=== PATIENT | male | born 1995 | race Caucasian/White ===

== ENCOUNTER 2019-09-13 00:03 | Emergency (ER) | payer OTHER ==
[~2019-09-13] VITALS: Ht 180.3 cm; Wt 90.3 kg
[~2019-09-13 00:03] MED LIST: ACCUNEB SO1.25 MG/1; ACETAMINOPHEN-1 EAC1 PO; ACTICIN 5% CREA60 G1 TOP; APAP/CODEI12 MG/5 M1 PO; BENADRYL25 MG PO; BENTYL 10 MG CA10 MG PO; BUPROPION; FLOVENT HFA 1110 MCG; IBUPROFEN 600600 M1 PO; IBUPROFEN 800800 M1 PO; IBUPROFEN 800800 MG PO; INVEGA6 MG PO; NEXIUM; NEXIUM40 MG; NOHOMEMEDICATIONS; PREDNISONE 10 M10 M1 PO; PREDNISONE50 MG PO; PRILOSEC 10MG C10 M1 PO; TESSALON200 MG PO; TRAMADOL 50 MG50 MG PO; VENTOLIN17 GM INH; WELLBUTRIN 100100 M1; ZPAK PO
[2019-09-13 00:46] VITALS: BP 126/81
--- NOTE | 2019-09-13 10:58 | EKG ---
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
== END 2019-09-13 00:46 | disposition home or self-care (01) ==
LOC: M.ERS 00:03
DX: R07.89 Other chest pain (principal); K58.9 Irritable bowel syndrome, unspecified; J45.909 Unspecified asthma, uncomplicated; F17.210 Nicotine dependence, cigarettes, uncomplicated; Z90.49 Acquired absence of other specified parts of digestive tract; Z88.0 Allergy status to penicillin; Z88.2 Allergy status to sulfonamides

== ENCOUNTER 2019-09-25 08:08 | Emergency (ER) | payer OTHER ==
[~2019-09-25] VITALS: Ht 180.3 cm; Wt 90.3 kg
[2019-09-25 08:47] LABS: HEMATOCRIT 47.1 % (42.0-52.0); HEMOGLOBIN 16.3 gm/dL (14.0-18.0); MCH 30.9 pg (26.0-34.0); MCHC 34.6 g/dL (28.0-37.0); MCV 89.4 fL (80.0-100.0); MPV 8.4 fl. (7.2-11.1); RBC 5.27 mil/uL (4.50-6.00); RDW-CV 14.3 % (10.5-14.5); WBC 7.9 thou/uL (4.0-11.0)
[2019-09-25 08:56] LABS: CALCIUM 8.3 mg/dL (8.5-10.1); CREATININE 0.8 mg/dL (0.6-1.3)
[2019-09-25 09:00] LABS: ALBUMIN 3.6 g/dL (3.4-5.0); TOTAL BILIRUBIN 0.2 mg/dL (<0.1-1.0); TOTAL PROTEIN 7.1 g/dL (6.4-8.2)
[2019-09-25] MEDS ORDERED: FLEXERIL PO (09:23)
[2019-09-25] MEDS ORDERED: IBUPROFEN 800800 M1 PO (09:23)
[2019-09-25 09:51] VITALS: BP 134/86
== END 2019-09-25 09:52 | disposition home or self-care (01) ==
LOC: M.ERS 08:08
PROVIDERS: Emergency Medicine Emergency Medical Services
DX: R07.81 Pleurodynia (principal); E86.0 Dehydration; J45.909 Unspecified asthma, uncomplicated; F17.210 Nicotine dependence, cigarettes, uncomplicated; Z88.0 Allergy status to penicillin; Z88.2 Allergy status to sulfonamides; Z90.49 Acquired absence of other specified parts of digestive tract

== ENCOUNTER 2019-11-06 17:42 | Emergency (ER) | payer OTHER ==
[~2019-11-06] VITALS: Ht 180.3 cm; Wt 90.3 kg
[~2019-11-06 17:42] MED LIST changes: +FLEXERIL PO
[2019-11-06] MEDS ORDERED: ZANAFLEX4 MG PO (18:59)
[2019-11-06] MEDS ORDERED: AZITHROMYCIN500 MG PO (18:59)
[2019-11-06 19:26] VITALS: BP 140/79
== END 2019-11-06 19:26 | disposition home or self-care (01) ==
LOC: M.ERS 17:42
DX: S39.012A Strain of muscle, fascia and tendon of lower back, initial encounter (principal); J02.0 Streptococcal pharyngitis; J45.909 Unspecified asthma, uncomplicated; F17.210 Nicotine dependence, cigarettes, uncomplicated; Z90.49 Acquired absence of other specified parts of digestive tract; Z88.0 Allergy status to penicillin; Z88.2 Allergy status to sulfonamides; V89.2XXA Person injured in unspecified motor-vehicle accident, traffic, initial encounter; Y93.89 Activity, other specified; Y92.89 Other specified places as the place of occurrence of the external cause; Y99.8 Other external cause status

== ENCOUNTER 2019-12-02 04:31 | Emergency (ER) | payer OTHER ==
[~2019-12-02] VITALS: Ht 180.3 cm; Wt 90.7 kg
[~2019-12-02 04:31] MED LIST changes: +AZITHROMYCIN500 MG PO; +ZANAFLEX4 MG PO
[2019-12-02] MEDS ORDERED: BENTYL 10 MG CA10 M1 PO (04:56)
[2019-12-02] MEDS ORDERED: ONDANSETRON ODT4 MG PO (04:56)
[2019-12-02 05:06] LABS: ABSOLUTE BASOPHILS 0.1 thou/uL (0.0-0.2); ABSOLUTE EOSINOPHILS 0.5 thou/uL (0.0-0.7); ABSOLUTE MONOCYTES 0.5 thou/uL (0.0-1.2); BASOPHILS 1.3 %; EOSINOPHILS 5.6 %; HEMATOCRIT 47.9 % (42.0-52.0); HEMOGLOBIN 16.7 gm/dL (14.0-18.0); LYMPHOCYTES 32.7 %; MCH 31.4 pg (26.0-34.0); MCHC 34.8 g/dL (28.0-37.0); MCV 90.4 fL (80.0-100.0); MONOCYTES 5.3 %; MPV 9.5 fl. (7.2-11.1); NUCLEATED RBCS 0 /100WBC; PLATELET COUNT* 283 thou/uL (150-400); POLYS 55.1 %; RDW-CV 14.5 % (10.5-14.5); WBC 9.1 thou/uL (4.0-11.0)
[2019-12-02 05:23] LABS: CALCIUM 9.1 mg/dL (8.5-10.1); CREATININE 1.2 mg/dL (0.6-1.3); POTASSIUM 4.3 mmol/L (3.5-5.1)
[2019-12-02 05:27] LABS: ALBUMIN 4.4 g/dL (3.4-5.0); TOTAL BILIRUBIN 0.5 mg/dL (<0.1-1.0); TOTAL PROTEIN 8.9 g/dL (6.4-8.2)
[2019-12-02] MEDS ORDERED: TRAMADOL 50 MG50 MG PO (05:37)
[2019-12-02 06:05] VITALS: BP 125/83
== END 2019-12-02 06:08 | disposition home or self-care (01) ==
LOC: M.ERS 04:31
PROVIDERS: Emergency Medicine
DX: K80.50 Calculus of bile duct without cholangitis or cholecystitis without obstruction (principal); F17.210 Nicotine dependence, cigarettes, uncomplicated; R20.2 Paresthesia of skin; R11.2 Nausea with vomiting, unspecified; J45.909 Unspecified asthma, uncomplicated; Z88.2 Allergy status to sulfonamides; Z88.0 Allergy status to penicillin; Z79.899 Other long term (current) drug therapy; Z90.89 Acquired absence of other organs

== ENCOUNTER 2019-12-27 21:04 | Emergency (ER) | payer OTHER ==
[~2019-12-27] VITALS: Ht 180.3 cm; Wt 90.7 kg
[~2019-12-27 21:04] MED LIST changes: +BENTYL 10 MG CA10 M1 PO; +ONDANSETRON ODT4 MG PO
[2019-12-27 21:46] LABS: URINE BILIRUBIN NEGATIVE (Negative); URINE BLOOD NEGATIVE (Negative); URINE CLARITY CLEAR; URINE COLOR YELLOW; URINE GLUCOSE-RANDOM NEGATIVE (Negative); URINE KETONES TRACE (Negative); URINE LEUKOCYTES-REFLEX NEGATIVE (Negative); URINE NITRITE-REFLEX NEGATIVE (Negative); URINE PROTEIN NEGATIVE (Negative); URINE SPECIFIC GRAVITY >= 1.030 (1.005-1.030); URINE UROBILINOGEN 0.2 E.U./dl (0.2-1.0)
[2019-12-27 21:53] LABS: AMP/METHAMP Negative (Negative); BARBITURATES Negative (Negative); BENZODIAZEPINES Negative (Negative); COCAINE Negative (Negative); METHADONE Negative (Negative); OPIATES Negative (Negative); PCP Negative (Negative); THC POSITIVE (Negative)
[2019-12-27 21:59] LABS: ABSOLUTE BASOPHILS 0.1 thou/uL (0.0-0.2); ABSOLUTE EOSINOPHILS 0.7 thou/uL (0.0-0.7); ABSOLUTE LYMPHOCYTES 3.2 thou/uL (0.8-5.3); ABSOLUTE MONOCYTES 0.7 thou/uL (0.0-1.2); ABSOLUTE NEUTROPHILS 3.6 thou/uL (1.6-8.1); BASOPHILS 1.4 %; EOSINOPHILS 8.6 %; HEMATOCRIT 43.1 % (42.0-52.0); HEMOGLOBIN 15.2 gm/dL (14.0-18.0); LYMPHOCYTES 38.3 %; MCHC 35.2 g/dL (28.0-37.0); MCV 90.7 fL (80.0-100.0); MONOCYTES 8.8 %; MPV 9.5 fl. (7.2-11.1); NUCLEATED RBCS 0 /100WBC; PLATELET COUNT* 230 thou/uL (150-400); POLYS 42.9 %; RBC 4.76 mil/uL (4.50-6.00); RDW-CV 14.1 % (10.5-14.5); WBC 8.3 thou/uL (4.0-11.0)
[2019-12-27 22:34] LABS: CALCIUM 8.8 mg/dL (8.5-10.1); CREATININE 1.1 mg/dL (0.6-1.3); POTASSIUM 3.8 mmol/L (3.5-5.1)
[2019-12-27 22:38] LABS: ALBUMIN 3.6 g/dL (3.4-5.0); TOTAL BILIRUBIN 0.1 mg/dL (<0.1-1.0); TOTAL PROTEIN 7.2 g/dL (6.4-8.2)
[2019-12-28 00:45] VITALS: BP 119/72
== END 2019-12-28 00:45 | disposition home or self-care (01) ==
LOC: M.ERS 21:04
PROVIDERS: Emergency Medicine
DX: R10.33 Periumbilical pain (principal); K58.9 Irritable bowel syndrome, unspecified; J45.909 Unspecified asthma, uncomplicated; F17.210 Nicotine dependence, cigarettes, uncomplicated; Z90.49 Acquired absence of other specified parts of digestive tract; Z88.0 Allergy status to penicillin; Z88.2 Allergy status to sulfonamides